=== PATIENT | male | born 1980 | race Caucasian/White ===

== ENCOUNTER 2024-11-29 10:05 | Emergency (ER) | payer BC, SELFPAY ==
--- OUTSIDE RECORDS SUMMARY | 2024-01-06 11:00 | XMS_ITS ---
Author Organization [facility] Address [address] [place] [address] Care Team Providers Care Manager Talent Name Role Phone Shanti He Primary Care Provider Autumn Stout Unavailable [phone] Allergies No Known Allergies Medications Medication SIG (Take, Route, Fr equency, Duration) Notes Start Date End Date Status Atorvastatin Calcium Active Metoprolol Succinate Active Social History Tobacco Use: Social History Observation Description Date Details (start date - stop date) Never Smoker NA - NA Tobacco Use/Smoking Question Answer Notes Are you a nonsmoker Additional Findings: Tobacco Non-User Current no n-smoker Alcohol Screen (Audit-C) Question Answer Notes Did you have a drink contain ing alcohol in the past year? Yes How often did you have a dri nk containing alcohol in the past year? Monthly or less (1 point) How many drinks did you have on a typical day when you were drinking in the past year? 1 or 2 drinks (0 point) How often did you have 6 or more drinks on one occasion in the past year? Never (0 point) Points 1 Interpretation Negative Vital Signs Blood pressure systolic 130 mm Hg 01/06/20 24 Blood pressure diastolic 85 mm Hg 024 Heart Rate 83 /min 01/06/2024 Respiratory Rate 18 /min 01/06/2024 Height 67 in 01/06/2024 Weight 162 lbs 01/06/2024 BMI 25.37 kg/m2 01/06/2024 Encounters Encounter Location Date Provider Diagnosis [facility] [address] [place] [address] 01/06/2024 Autumn Israel Encounter for screening for malignant neoplasm of colon Z12.11 Assessments Encounter Date Diagnosis (ICD Code) Assessment Notes Treatment Notes Treatment Clinical Notes Section Notes 01/06/2024 Encounter for screening for malignant neoplasm of colon (ICD-10 - Z12.11) Risks of procedure(s) reviewed in detail with patient, including (but not limited to) the following: (1) cardiopulmonary complications r/t procedural sedation; (2) adverse effects of bowel preparation; (3) bleeding; (4) perforation; (5) splenic rupture; (6) infection; and (7) missed lesions/polyps [1-5%]. Alternatives explained. All questions were answered and patient verbalized understanding. Plan Of Treatment Treatment Notes Assessment Notes Encounter for screening for malignant neoplasm of colon Risks of procedure(s) reviewed in detail with patient, including (but not limited to) the following: (1) cardiopulmonary complications r/t procedural sedation; (2) adverse effects of bowel preparation; (3) bleeding; (4) perforation; (5) splenic rupture; (6) infection; and (7) missed lesions/polyps [1-5%]. Alternatives explained. All questions were answered and patient verbalized understanding. 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 Denies any difficulties swallowing. Denies any recent shortness of breath or chest pain. Denies any abdominal pain. Denies any significant gas/bloat. Denies any unusual change in bowel habits. Denies any BRBPR or melena. Denies any unusual weight loss. Denies CKD Denies CAD, CHF, AAA Not on anticoagulation, no NSAIDs Denies FHx of CRC Denies PHx of any CA Last CN 25 years ago, due to stomach issues . * ROS: C ustom Category: General/constitutional d enies, m alaise, fatigue, weight loss, weight gain, night sweat, decrease appetite, fever, lightheadedness. S kin d enies,?rash, itching, bruising, swelling, nail chnages, skin lesions. E NT d enies, s ore throat, hoarseness, sinus drainage, lump, post nasal drip, raspy voice, dry mouth, mouth breathing at night. C ardiac d enies, C hest pain, Palpitation, Rapid HR. R espiratory d enies, S hort of Breath, Cough, PleuriticCP, Wheezing. G U d enies, D ysuria, Hematuria, Frequency, Urinary incontinence. M uscSquel d enies, M yalgias, Arthralgias. N euro d enies, H eadache, Paresthesia, Syncope, Aphasia. G I P er HPI. O phthalmology d enies, b lurred vision, dry eyes, yellow eyes. H ematology d enies, b eing anemic, bleeding problems. * Medical History: H ypertension. * Surgical History: c olonoscopy [id number], unsure. * Hospitalization/Major Diagno stic Procedure: D enies Past Hospitalization. * Family History: mother - female reproductive cancer, unsure which kind father - skin cancer. * Social History: T obacco Use: T obacco Use/Smoking A re you a n onsmoker, A dditional Findings: Tobacco Non-User?Current non-smoker. D rugs/Alcohol: A lcohol Screen (Audit-C) D id you have a drink containing alcohol in the past year? Y es, H ow often did you have a drink containing alcohol in the past year? M onthly or less (1 point), H ow many drinks did you have on a typical day when you were drinking in the past year? 1 or 2 drinks (0 point), H ow often did you have 6 or more drinks on one occasion in the past year? N ever (0 point), P oints 1 , I nterpretation N egative. * Medications: T aking Metoprolol Succinate , Taking Atorvastatin Calcium , Medication List reviewed and reconciled with the patient * Allergies: N .K.D.A. Objective: * Vitals: H R:83/min, BP:130/85mm Hg, Ht:67in, Wt:162lbs, BMI:25.37Index, RR:18/min, Ht-cm:170.18, Wt-k.48. * Examination: G eneral Examination: GENERAL APPEARANCE: i n no acute distress, well developed, overweight. HEAD: n ormocephalic, atraumatic. EYES: p upils equal, sclera anicteric. NOSE: no nasal flaring. SKIN: n o rashes, no suspicious lesions, warm and dry. CHEST: n ormal. ABDOMEN: bowel sounds present, soft, nontender, nondistended. RECTAL d eferred, not examined. EXTREMITIES: n o clubbing, cyanosis, or edema. NEUROLOGIC: n onfocal, well oriented. PSYCH: a lert, oriented, good eye contact, mood/affect appropriate. Assessment: * Assessment: 1. E ncounter for screening for malignant neoplasm of colon - Z12.11 (Primary) Plan: * Treatment: * Procedure Codes: 2 000F BLOOD PRESSURE MEASURED, 3017F COLON DOCUMENTED AND REVIEWED, 3074F LATEST SYSTOLIC BP < 130 MM HG, 3075F LATEST SYSTOLIC BP 130-139 MM HG, 3079F LATEST DIASTOLIC BP 80-89 MM HG, 34857 CPT CODE 43650, G8417 BMI documented Above normal parameters And follow up documented, G8427 MEDICATIONS DOCUMENTED AND REVIEWED WITH PATIENT, G8783 NORMAL BLOOD PRESSURE READING DOCUMENTED, FOLLOW UP NOT REQUIRED * Preventive Medicine: WELL VISIT: P reventivve screening L ast done Colonoscopy P atient had a colonoscopy with another practice. . Counseling: B P Management: P RE-HYPERTENSIVE FOLLOW-UP PLAN: B lood pressure within normal limits- No follow up needed. . C olonoscopy L ast Screening Date- W as done at another practice, T en year follow-up for colonoscopy recommended? Y es. B DE counseling provided B DE management provided Y es. C are goal follow-up plan: B DE management provided N utrition counseling, A shruthi Normal BMI Follow-up S pecial diet education, B elow Normal BMI Follow-up D ietary management education, guidance, and counseling.?PATIENT EDUCATION: P atient education materials given: Y haylie, Ramon escribe: W eb links added to visit summary. S MOKING: P atient counselled on the dangers of tobacco use and urged to quit. 0 01/06/2024. * Follow Up: C N: suprep: FU 4 weeks * Billing Information: * Visit Code: 21187 Office Consultation Level 2. * Procedure Codes: 2000F BLOOD PRESSURE MEASURED. 3017F COLONSCOPY DOCUMENTED AND REVIEWED. 3074F LATEST SYSTOLIC BP < 130 MM HG. 3075F LATEST SYSTOLIC BP 130-139 MM HG. 3079F LATEST DIASTOLIC BP 80-89 [place]. [address] CPT CODE 85871. G8417 BMI documented Above normal parameters And follow up documented. G8427 MEDICATIONS DOCUMENTED AND REVIEWED WITH PATIENT. G8783 NORMAL BLOOD PRESSURE READING DOCUMENTED, FOLLOW UP NOT REQUIRED. 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 Denies any difficulties swallowing. Denies any recent shortness of breath or chest pain. Denies any abdominal pain. Denies any significant gas/bloat. Denies any unusual change in bowel habits. Denies any BRBPR or melena. Denies any unusual weight loss. Denies CKD Denies CAD, CHF, AAA Not on anticoagulation, no NSAIDs Denies FHx of CRC Denies PHx of any CA Last CN 25 years ago, due to stomach issues Examination Category Sub-Category Detail Notes Category Not es General Examination GENERAL APPEARANCE: in no ac ambler distress, well developed, overweight HEAD: normocephalic, atrau matic EYES: pupils equal, sclera anicteric NOSE: no nasal flaring CHEST: normal ABDOMEN: bowel sounds present , soft, nontender, nondistended NEUROLOGIC: nonfocal, well orien abigail SKIN: no rashes, no suspic ious lesions, warm and dry EXTREMITIES: no clubbing, cyanosi s, or edema RECTAL deferred, not examin ed PSYCH: alert, oriented, goo d eye contact, mood/affect appropriate
--- OUTSIDE RECORDS SUMMARY | 2024-03-07 04:00 | XMS_ITS ---
Author Organization [facility] Address [address] [place] [address] Care Team Providers Care Labels Molder Name Role Phone Shanti He Primary Care Provider Unavailab NARCISA Wood Unavailable [phone] Encounters Encounter Location Date Provider Diagnosis [facility] [address] [place], [place] [id number] 03/07/2024 NARCISA HERRERA Encounter for screening for malignant neoplasm of colon Z12.11 Assessments Encounter Date Diagnosis (ICD Code) Assessment Notes Treatment Notes Treatment Clinical Notes Section Notes 03/07/2024 Encounter for screening for malignant neoplasm of colon (ICD-10 - Z12.11) Plan Of Treatment No Information Progress Notes * Mica STREETOB:1980 (44 yo M)Acc No.[id number]:03/07/2024 Patient: Julisa ACOSTA Provider: Cris Herrera M.D. :1980 A ge:43 Y S ex:Male Date:03/07/2024 Address:[address] [place], [place] [id number] Pcp:Shanti COTA * Billing Information: * Visit Code: * Procedure Codes: 48731 DIAGNOSTIC COLONOSCOPY. 56974 COLONOSCOPY/BX. * Electronic signature of MILTON HERRERA M.D. on 11/29/2024 at 11:40 AM EDT Sign off status: Pending * Provider: Cris Herrera M.D. Date: 1 Generated for Printi ng/Faxing/eTransmitting on: 0 11/29/2024 11:40 AM EDT
--- OUTSIDE RECORDS SUMMARY | 2024-04-04 11:45 | XMS_ITS ---
Author Organization [facility] Address [address] [place] [address] Care Team Providers Care Electric Cutter Operator Name Role Phone Shanti He Primary Care Provider Unavailab Lianne Palmer Unavailable [phone] REASON FOR VISIT COLON Encounters Encounter Location Date Provider Diagnosis [facility] [address] [place] [address] 04/04/2024 Lianne Wei Plan Of Treatment No Information Progress Notes * Mica STREETOB:1980 (44 yo M)Acc No.[id number]:04/04/2024 PROGRESS NOTES Patient: Julisa ACOSTA Appointment Provider: BEATA Palacios :1980 A ge:43 Y S ex:Male Date:04/04/2024 Address:[address] [place], [place] [address]E Marija [facility] Pcp:Shanti COTA Subjective: * Chief Complaints: * 1 . COLON. * Medical History: Objective: * Vitals: Assessment: Plan: * Treatment: * Billing Information: * Visit Code: * Procedure Codes: * Electronic signature of BEATA Morocho on 11/29/2024 at 11:40 AM EDT Sign off status: Pending * Appointment Provider: BEATA Palacios Date: Generated for Printi ng/Faxing/eTransmitting on: 0 11/29/2024 11:40 AM EDT
[2024-11-29 10:07] VITALS: BP 138/104; PULSE 132; RESP 20; TEMP 36.8; O2SAT 98
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
[2024-11-29] MEDS: iohexol 350 mg/mL 500 mL Btl (per mL) IV (10:32)
--- OUTSIDE RECORDS SUMMARY | 2024-11-29 10:39 | XMS_ITS | Data Portability ---
Author Organization [facility], [place] Address [facility] [address] [place] [address] Care Team Providers Care Sagger Preparer Name Role Phone David RIVERA Primary Care Provider Assessment Encounter Date Assessment Date Assessment LastModified by Organization Details LastModified Time 11/30/2021 11/30/2021 -COVID-19 nasal swab specimen sent to [facility] -Pt to follow up with PCP in 48-72 hours for results [email or web address] Not available 11/30/2021 19:12:35 12/01/2021 12/01/2021 -COVID-19 nasal swab specimen sent to [facility] -Pt to follow up with PCP in 48-72 hours for results chest xr done @ [facility] on 11/30/21 no acute cardiopulmonary disease ct brain done @ [facility] on 11/30/21 no acute intracranial abnormality covid-labs from 11/30/21 pending [email or web address] Not available 12/01/2021 23:01:11 Plan of Treatment Reminders Order Date Submit Date Provider Last Modified By Organization Details Last Modified Time Details Appointments None recorded. Lab CBC w/ auto diff 2021 [facility], [address], [place], [address], 07:24:16 CMP, serum or plasma 2021 022 [facility], [address], [place], [address], 2 07:24:14 urinalysis complete, reflex culture 2021 [facility], [address], [place], [address], 07:24:16 amylase, serum or plasma 2021 [facility], [address] [facility] [address], [place], [address], 07:24:15 lipase, serum or plasma 2021 [facility], [address], [place], [address], 07:24:15 Referral None recorded. Procedures None recorded. Surgeries None recorded. Imaging CT, head + brain, w/o contrast 2021 [facility], [address], [place], [address], 10:52:18 XR, chest 2021 [facility], [address], [address], [place], [address], 10:52:47 Medication Orders Xofluza 40 mg tablet 2021 [email or web address] [address], [address], [place], [address], 19:10:54 ondansetron 8 mg disintegrat ing tablet 2021 [facility] [address], [address], [place], [address], 14:23:04 amoxicillin 875 mg tablet 2021 [facility] [address], [address], [place], [address], 14:22:22 Patient TargetsNo targets recorded. Patient Instructions Encounter Date Encounter Id Patient Instructions Last Modified By Organization Details Last Modified Time 11/30/2021 [id number] headache: care instructions [email or web address] Not available 11/30/2021 19:20:11 nausea and vomiting: care instructions [email or web address] Not available 11/30/2021 14:22:25 learning about fever [email or web address] Not available 11/30/2021 14:25:12 upper respirator y infection (cold): care instructions [email or web address] Not available 11/30/2021 19:20:11 diarrhea: care instructions [email or web address] Not available 11/30/2021 14:22:35 influenza (flu): care instructions [email or web address] Not available 11/30/2021 19:20:12 PLAN 1. Patient to follow up with PCP or RTC tomorrow for re-evaluation and review of images/labs 2. Patient instructed [facility] open M-F 8am- 8pm and Sat/Sun 8am-5pm, and [facility] is open everyday from 8AM to 5 PM. Patient should return for any question(s)/concern (s)/evaluation(s) 3. Patient directed to CALL 911/and/or GO IMMEDIATELY to the emergency dept if symptoms worsen 4. Discussed natural and expected course of this diagnosis and need to alert PCP if symptoms do not follow expected course, or if any worse. [email or web address] Not available 11/30/2021 14:23:11 12/01/2021 [id number] headache: care instructions [email or web address] Not available 12/01/2021 23:01:28 nausea and vomiting: care instructions [email or web address] Not available 12/01/2021 23:01:28 learning about fever [email or web address] Not available 12/01/2021 23:01:28 upper respirator y infection (cold): care instructions [email or web address] Not available 12/01/2021 23:01:28 diarrhea: care instructions [email or web address] Not available 12/01/2021 23:01:28 influenza (flu): care instructions [email or web address] Not available 12/01/2021 23:01:28 Pt was informed that it can take 2-5 days for COVID-19 results to come back and was instructed to go to the ER or call 911 if he develops SOB, chest tightness, fever 100.5f, chills, CP, upper back pain, or any other symptoms. pt verbalized understanding Recommendation Regarding the Use of Cloth Face Coverings, Especially in Areas of Significant Community-Based Transmission Other Languages Print Page mask icon Use of Cloth Face Coverings to Help Slow the Spread of COVID-19 Learn More CDC continues to study the spread and effects of the novel coronavirus across the [place]. We now know from recent studies that a significant portion of individuals with coronavirus lack symptoms ( asymptomatic ) and that even those who eventually develop symptoms ( pre-symptomatic ) can transmit the virus to others before showing symptoms. This means that the virus can spread between people interacting in close proximity for example, speaking, coughing, or sneezing even if those people are not exhibiting symptoms. In light of this new evidence, CDC recommends wearing cloth face coverings in public settings where other social distancing measures are difficult to maintain (e.g., grocery stores and pharmacies) especially in areas of significant community-based transmission. It is critical to emphasize that maintaining 6-feet social distancing remains important to slowing the spread of the virus. CDC is additionally advising the use of simple cloth face coverings to slow the spread of the virus and help people who may have the virus and do not know it from transmitting it to others. Cloth face coverings fashioned from household items or made at home from common materials at low cost can be used as an additional, voluntary public health measure. The cloth face coverings recommended are not surgical masks or N-95 respirators. Those are critical supplies that must continue to be reserved for healthcare workers and other medical first responders, as recommended by current CDC guidance. This recommendation complements and does not replace the President s Coronavirus Guidelines for [place], 30 Days to Slow the Spread external icon, which remains the cornerstone of our national effort to slow the spread of the coronavirus. CDC will make additional recommendations as the evidence regarding appropriate public health measures continues to develop. What is social distancing?Social distancing, also called physical distancing, means keeping space between yourself and other people outside of your home. To practice social or physical distancing: Stay at least 6 feet (about 2 arms length) from other people Do not gather in groups Stay out of crowded places and avoid mass gatherings In addition to everyday steps to prevent COVID-19, keeping space between you and others is one of the best tools we have to avoid being exposed to this virus and slowing its spread locally and across the country and world. Limit close contact with others outside your household in indoor and outdoor spaces. Since people can spread the virus before they know they are sick, it is important to stay away from others when possible, even if you or they have no symptoms. Social distancing is especially important for people who are at higher risk for severe illness from COVID-19. Many people have personal circumstances or situations that present challenges with practicing social distancing to prevent the spread of COVID-19. [email or web address] Not available 12/01/2021 23:02:39 PLAN 1. Patient to follow up with PCP or RTC tomorrow for re-evaluation and review of PENDING labs 2. Patient instructed [facility] open M-F 8am- 8pm and Sat/Sun 8am-5pm, and [facility] is open everyday from 8AM to 5 PM. Patient should return for any question(s)/concern (s)/evaluation(s) 3. Patient directed to CALL 911/and/or GO IMMEDIATELY to the emergency dept if symptoms worsen 4. Discussed natural and expected course of this diagnosis and need to alert PCP if symptoms do not follow expected course, or if any worse. [email or web address] Not available 12/01/2021 23:01:27 Reason for Referral None Reported. Results Created Date Observation Date Name Description Value Unit Range Abnormal Flag Note LastModifiedBy Organization Detail LastModifiedTime 12/02/[address], head + brain , w/o contr ast No observ ation record ed. [email or web address] [facility] [address], [place], [address], 12/01/2021 10:52:18 12/02/19 22 XR, chest No observ ation record ed. [email or web address] [facility] [address], [place], [address], 12/01/2021 10:52:47 Result Notes None recorded. Problems Name Problem SNOMED Code Status Onset Date Resolution Date Notes Provider Name and Address Organization Details Recorded Time Hyperlipidemia 37373894 Active [address] [facility] 2 13:51:16 Hypertensive disorder 49649286 [facility] 13:51:58 Problem Notes None recorded. Procedures Surgical History Date Name Laterality Status Provider Name and Address Organization Details Recorded Time 2 -[place] [address], [place], [address], [facility] 11/30/2021 19:12:13 2 -Zofr[place] [address], [place], [address], [facility] 11/30/2021 14:23:39 2 -Rocephin (IV) [place] [address], [place], [address], [facility] 11/30/2021 14:23:33 8 procedure on nerve completed MONIK MARTIN [facility] 11/30/2021 13:53:13 Imaging Results None recorded. Procedure Notes None recorded. Medical Equipment None Reported. Allergies No known drug allergies Medications Name Sig Start Date Stop Date Status Note LastModified by Organization Details LastModified Time prednisone 10 mg tablet TAKE 2 TABLETS BY MOUTH ONCE DAILY FOR 7 DAYS, THEN 1 TABLET DAILY UNTIL GONE DIRECTED 11/30 completed Not Available Not Available Not Available atorvastati n 20 mg tablet TAKE 1 TABLET BY MOUTH ONCE DAILY active Not Available Not Available No t Available ondansetron 8 mg disintegrat ing tablet Place 1 tablet twice a day by transling ual route as needed for 3 days. active Not Available Not Available No t Available amoxicillin 875 mg tablet Take 1 tablet every 12 hours by oral route for 10 days. active Not Available Not Available No t Available cephalexin 500 mg capsule TAKE 1 CAPSULE BY MOUTH EVERY 12 HOURS FOR 7 DAYS 11/30 completed Not Available Not Available Not Available oseltamivir 75 mg capsule active Not Available Not Available Not Available telmisartan 80 mg tablet TAKE 1 TABLET BY MOUTH ONCE DAILY 11/30 completed Not Available Not Available Not Available metoprolol succinate ER 25 mg tablet,exte nded release 24 hr TAKE 1 TABLET BY MOUTH ONCE DAILY active Not Available Not Available No t Available amoxicillin 875 mg-potassiu m clavulanate 125 mg tablet TAKE 1 TABLET BY MOUTH TWICE DAILY DIRECTED 11/30 completed Not Available Not Available Not Available Xofluza 40 mg tablet Take 1 tablet every day by oral route. 2021 active Not Available Not Available Not Avai lable Vitals Date Recorded Body height Body mass index (BMI) Body weight Heart rate Respiratory rate Body temperature Oxygen saturation Oxygen saturation in Arterial blood by Pulse oximetry Systolic blood pressure Diastolic blood pressure Provider Name and Address Organization Details Last Updated DateTime 2 170.18 cm 26.6 kg/m2 36294.7 g 98 /min 18 /min 97.5 [degF] 97 % 97 % 122 mm[Hg] 78 mm[Hg] MONIK Giraldo [facility] 2 13:48:53 Date Recorded Body height Heart rate Respiratory rate Body temperature Body mass index (BMI) Body weight Oxygen saturation Oxygen saturation in Arterial blood by Pulse oximetry Systolic blood pressure Diastolic blood pressure Provider Name and Address Organization Details Last Updated DateTime 2 170.18 cm 78 /min 18 /min 97.6 [degF] 26.6 kg/m2 54125.7 g 98 % 98 % 108 mm[Hg] 70 mm[Hg] [facility] 10:50:41 Social History None recorded. Functional Status Question Answer Note LastModified by Organizat ion Details LastModified Time What is your level of alcohol consumption? Occasional [email or web address] Information not available 11/30/2021 Mental Status None recorded. Family History Relationship Description Onset Age of this Age Resolved Age Notes LastModified by Organization Details LastModified Time Father Congestive heart failure [email or web address] Not available 11/06 13:52:13 Notes:mother no known health problems Medical History Condition Response Allergies, Hayfever, Polen, Tree, Cats, Dogs, Dust or Mite N Heart Disease, Acute Myocardial Infarcti on N Gastrointestinal Problem, Peptic Ulcer D isease(Stomach Ulcer) N Infectious Disease, MRSA exposure N Psychiatric Disorder, Depression, Anxiet y N DIAGNOSTIC STUDY: Mammogram N Muscle Disorder, Fibromyalgia N Blood Diseases, Hemophilia N Cancer, Skin, Melanoma, Squamous Cell, B osiris Cell N Surgical Complications, Anesthesia N Hospitalizations or Surgery (most recent ) N Lung Disease, COPD , Emphysema N Obesity N DIAGNOSTIC STUDY: Ultrasound N Gastrointestinal Problem, Constipation N Kidney Disease, Hematuria(Blood in urine ) N Psychiatric Disorder, Schizophrenia N Heart Disease, Congestive Heart Disease N Anemia, Iron Deficiency N Cancer, Lymphoma N Blood Diseases, Hemochromatosis N Infectious Disease, History of Tuberculo sis N DIAGNOSTIC STUDY: CT Scan N Anemia, Sickle Cell Trait N Lung Disease, Asthma N Neurological Disorder, Stroke/TIA N Heart Disease, Heart Murmur N DIAGNOSTIC STUDY: Stress Test N Gastrointestinal Problem, Irritable Annie l Syndrome N Ear Nose and Throat (ENT), Meniere's dis ease N Cancer, Prostate, Bladder N Cancer, Cervical or Ovarian N DIAGNOSTIC STUDY: PET Scan N Lung Disease, Pulmonary Embolism N DIAGNOSTIC STUDY: Immunocap (Allergy Savannah ting) N DIAGNOSTIC STUDY: Colonoscopy N Vision Problem, Glaucoma N Psychiatric Disorder, Bipolar Disease N Gastrointestinal Problem, Gall Bladder, GERD-Reflux N DIAGNOSTIC STUDY: Bone Density N Genitourinary Problems, BPH, incontinenc e, frequency N Vision Problem, Macular Degeneration N Eating Disorder, Anorexia, Bulimia N Vascular disorder, Varicosities N Infectious Disease, Chicken Pox, Shingle s, Herpes Zoster N Ear Nose and Throat (ENT), Nasal Polyps, Chronic Sinusitis N Bone & Joint Disorder, Arthritis, RHEUMA TOID N Cancer, Breast N Thyroid Disorder, Hyperthyroidism N Blood Diseases, Leukemia N Defects or Inherited Disease N Vision Problem, Others N Bone & Joint Disorder, Arthritis, OSTEOA RTHRITIS N DIAGNOSTIC STUDY: EKG N Skin Disease, Eczema, Psoriasis N Heart Disease, Hypertension Y DIAGNOSTIC STUDY: Echo-cardiogram N Neurological Disorder, Headaches, Migrai capri N Psychiatric Disorder, ADD/ADHD N Gastrointestinal Problem, Hepatitis, Evelyn vated Liver Enzymes, Liver Disease N Epilepsy/Seizure Disorder N DIAGNOSTIC STUDY: Cystoscopy N DIAGNOSTIC STUDY: Bone Scan N Bladder, Prostate or Kidney Problems N Kidney Disease, Kidney Stones N DIAGNOSTIC STUDY: MRI (Magnetic Resonanc e Imaging) N DIAGNOSTIC STUDY: Sleep Study N Bone & Joint Disorder, Gout N Heart Disease, Atrial Fibrillation/Atria l Flutter N DIAGNOSTIC STUDY: Endoscopy N Heart Disease, High Cholesterol Y DIAGNOSTIC STUDY: Electromyography (EMG) N Infectious Disease, AIDS, HIV, Hep-C, He p-B N Gastrointestinal Problem, Difficulty Swa llowing, Esophageal Stricture N Diabetes N Ear Nose and Throat (ENT), Hard of Heari ng N DIAGNOSTIC STUDY: XRs N Blood Diseases, Thrombophilia N Abuse/Domestic Violence N Heart Disease, Coronary Artery Disease N Gastrointestinal Problem, Diverticulosis /Diverticulitis/Polyps N Thyroid Disorder, Hypothyroidism N Psychiatric Disorder, Obscessive Compuls allyssa Disorder N Bone & Joint Disorder, Osteopenia/Osteop orosis N Anemia, Sickle Cell N Surgical Complications, Blood Transfusio n N Immunizations Vaccine Type Date Status Note Provider Nam e and Address Organization Details Recorded Time Influenza, split virus, trivalent, preservative [address] [facility] 12/01/2021 10:50:46 Influenza, MDCK, quadrivalent, preservative 1 completed christa chowdhury [facility] 12/01/2021 10:50:46 Past Encounters Encounter ID Performer Location Encounter Start Date Encounter Closed Date Diagnosis/Indication Diagnosis SNOMED-CT Code Diagnosis ICD10 Code Diagnosis Note [id number] [facility] [address] [facility] [place] [address] 11/30/2021 13:43:08 11/30/2021 15:28:51 Acute upper respiratory infection 71964701 J06.9 Influenza- like symptoms 917985459 R68.89 Headache 34026415 R51.9 Pt was instructed to go to the ER or call 911ifhe develops worse headache ever, rapid or irregular heartbeat, change in vision, weakness, slurred speech, confusion, lightheade dness, dizziness, excessive sweating, fever, leg/calf pain or swelling, feeling clammy, SOB or CP, chest tightness, or any other symptoms. pt verbalized understand ing Vomiting 312150277 R11.1 0 Diarrhea 23852704 R19.7 Fever with chills 614347 006 R50.9 [id number] [facility]AM [facility] [address] [facility] [place] [address] 12/01/2021 10:43:50 12/01/2021 11:28:50 Acute upper respiratory infection 44637389 J06.9 Influenza- like symptoms 308992584 R68.89 Headache 73146015 R51.9 Pt was instructed to go to the ER or call 911ifhe develops worse headache ever, rapid or irregular heartbeat, change in vision, weakness, slurred speech, confusion, lightheade dness, dizziness, excessive sweating, fever, leg/calf pain or swelling, feeling clammy, SOB or CP, chest tightness, or any other symptoms. pt verbalized understand ing Vomiting 983248815 R11.1 0 Diarrhea 01368003 R19.7 Fever with chills 735318 006 R50.9 Health Concerns Section Related Observation LastModified by Organization Detai ls LastModified Time None Recorded Concern Status LastModified by Organization Details LastModified Time None Recorded Advance Directives Directive None Recorded Payers Insurance Date Sequence Insurance Name Policy Number Policy Altman Covered Member ID Altman Member ID Guarantor Name 01/01/2022 1 [employer] [place] ([place]) [id number] [id number] [address] Notes Date Note Type Note Provider Name and Address Organization Details Recorded Time 11/30/2021 text/html 41 y/o male c/o Fever 100.5f, chills, fatigue, vomiting- once, diarrhea-6x/, head pressure, dizzy x11/29/2021 pt states he has taken Tylenol with mild improvement Pt denies getting covid 19 vaccination. Pt reports having covid 2x and last covid-19 was approx 6 months ago pt denies abdominal pain, loss of taste or smell, hematochezia, BRBPR, dark or black stools, 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 11/30/21 41 y/o male c/o Fever 100.5f, chills, fatigue, vomiting- once, diarrhea-6x/, head pressure, dizzy x11/29/2021 pt states he has taken Tylenol with mild improvement Pt denies getting covid 19 vaccination. Pt reports having covid 2x and last covid-19 was approx 6 months ago pt denies abdominal pain, loss of taste or smell, hematochezia, BRBPR, dark or black stools, [place] [address], [place], [address], [facility] 12/01/2021 23:02:56
--- OUTSIDE RECORDS SUMMARY | 2024-11-29 10:40 | XMS_ITS | Patient Health Record ---
Author Organization [facility] Address [address] [place] [address] Care Team Providers Care Director Sales Training Name Role Phone Shanti He Primary Care Provider Unavailab NARCISA Wood Unavailable [phone] Lianne Wei Unavailable [phone] Autumn Israel Unavailable [phone] Allergies No Known Allergies Reason For Referral No Information Medications Medication SIG (Take, Route, Fr equency, [...] point) Points 1 Interpretation Negative Vital Signs Heart Rate 83 /min 01/06/2024 Respiratory Rate 18 /min 01/06/2024 Blood pressure diastolic 85 mm Hg 01/06/2024 Height 67 in 01/06/2024 Blood pressure systolic 130 mm Hg 01/06/2024 Weight 162 lbs 01/06/2024 BMI 25.37 kg/m2 01/06/2024 Encounters Encounter Location Date Provider Diagnosis [facility] [address] [place] [address] 01/06/2024 Autumn Israel Encounter for screening for malignant neoplasm of colon Z12.11 [facility] [address] [place], [place] [id number] 03/07/2024 NARCISA VELAZCO Encounter for screening for malignant neoplasm of colon Z12.11 [facility] [address] [address] 01/06/2024 Autumn Israel [facility] [address] [address] 01/06/2024 Autumn Israel Assessments Encounter Date Diagnosis (ICD Code) Assessment [...] questions were answered and patient verbalized understanding. 03/07/2024 Encounter for screening for malignant neoplasm of colon (ICD-10 - Z12.11) Plan Of Treatment No Information Insurance Providers Payer Name Payer Address Payer Phone Subscriber Number Group Number Insured Name Patient Relationship to Insured Coverage Start Date Coverage End Date [facility] [address] [place] [address] [id number] ALDO [address] Self - patient is the insured Medical (General) History Medical History History ICD Code hypertension Surgical History Surgery Date(Month/Year) colonoscopy [id number], unsure
[2024-11-29] MEDS: ketorolac 30 mg/mL INJ 15 MG IVP (11:15)
--- NOTE | 2024-11-29 11:21 | PC.NURSE ---
cleaned wound on L knee and R hand; abrasions noted, no lacerations. wrapped with non-stick Telfa and Kerlex.
--- NOTE | 2024-11-29 11:22 | PC.NURSE ---
per Dr. Gallardo to have pt complete ambulation trial. pt able to ambulate without assistance to BR, c/o mild soreness/back pain but denies increase in pain.
[2024-11-29 11:43] VITALS: BP 137/97; PULSE 104; O2SAT 95
== END 2024-11-29 11:54 | disposition home or self-care (01) ==
PROVIDERS: Emergency Provider Emergency Medicine
DX: S80.02XA Contusion of left knee, initial encounter (principal); V89.2XXA Person injured in unspecified motor-vehicle accident, traffic, initial encounter
CPT/HCPCS: 36415; 72131; 73562; 74177; 96374; 99285; J1885